=== PATIENT | male | born 1960 | race Caucasian/White ===

== ENCOUNTER → 2018-06-24 | Outpatient (CLI) | payer OTHER ==
[~2018-06-24] MED LIST: ASPI-1471 PO; CEP500 PO; CET10 PO; FEXO-67 PO; LOR5 PO; MONT10TA PO; RANI-366 PO
--- NOTE | 2018-06-24 14:25 | EKG ---
FACILITY: [facility] PATIENT NAME: QUINTON PEREYRA : [id number] MR: [id number] V: [id number] EXAM DATE: ORDERING PHYSICIAN: JD VELAZQUEZ TECHNOLOGIST: LOUISE Sarah Reason : PREOP Blood Pressure : / mmHG Vent. Rate : 056 BPM Atrial Rate : 056 BPM P-R Int : 194 ms QRS Dur : 104 ms QT Int : 394 ms P-R-T Axes : 074 075 056 degrees QTc Int : 380 ms Sinus bradycardia Otherwise normal ECG No previous ECGs available Confirmed by JD MATHEW ([id number]) on 06/24/2018 6:08:53 PM Referred By: MARCUS Confirmed By:JD MATHEW
[2018-06-24 14:30] LABS: PLATELET COUNT, AUTOMATED 274 K/uL (150-450)
== END ==
LOC: LAB 13:58
PROVIDERS: ATTEND Anesthesiology
DX: Z01.812 Encounter for preprocedural laboratory examination (principal); Z01.810 Encounter for preprocedural cardiovascular examination; R00.1 Bradycardia, unspecified; M48.061 Spinal stenosis, lumbar region without neurogenic claudication
CPT/HCPCS: 36415; 82040; 82247; 82310; 82374; 82435; 82565; 82947; 84075; 84132; 84155; 84295; 84450; 84460; 84520; 85025; 93005

== ENCOUNTER 2018-07-12 00:48 | Day surgery (SDC) | payer OTHER ==
[~2018-07-12] VITALS: Ht 182.9 cm; Wt 70.3 kg
[~2018-07-12 00:48] MED LIST changes: +ACET-1966 PO; +NAPR220C12 PO; +PREG20SO PO; +PREG75CA60 PO
[2018-07-12] MEDS ORDERED: DEXAMETHASONE SOD PHOS 10MG/ML ONE (06:20)
[2018-07-12] MEDS ORDERED: KETAMINE HCL-NS 50 MG/5 ML SYR ONE (06:23)
[2018-07-12] MEDS ORDERED: PROPOFOL(*)1000 MG/100 ML VIAL 100 ML ONE (06:27)
[2018-07-12] MEDS ORDERED: PROPOFOL EMUL(*) 10MG/ML 20 ML 20 ML ONE ×2 (07:44→11:29)
[2018-07-12] MEDS ORDERED: LIDOCAINE MPF 1% 5 ML VIAL ONE (07:44)
[2018-07-12] MEDS ORDERED: METOCLOPRAMIDE 10 MG/2 ML SDV ONE (07:47)
[2018-07-12] MEDS ORDERED: fentaNYL CITR 250 MCG/5 ML AMP ONE (07:48)
[2018-07-12 07:50] VITALS: BP 154/101
[2018-07-12] MEDS ORDERED: MIDAZOLAM 2 MG/2 ML VIAL IVP PRN ×2 (08:00→09:20)
[2018-07-12] MEDS ORDERED: ceFAZolin(*) 2GM/D5W 50ML 50 ML IVPB ONE (08:00)
[2018-07-12] MEDS ORDERED: ACETAMINOPHEN 500 MG TAB PO ONE (08:20)
[2018-07-12] MEDS ORDERED: LIDOCAINE/SOD BICARB 8.4% SYR ID ONE (08:20)
[2018-07-12] MEDS ORDERED: PREGABALIN 150 MG CAPSULE PO ONE (08:20)
[2018-07-12] MEDS ORDERED: FAMOTIDINE 20 MG TAB PO ONE (08:20)
[2018-07-12] MEDS ORDERED: NORMOSOL R SOLN(*) 1000 ML BAG 1,000 ML IV PRN (08:20)
[2018-07-12] MEDS ORDERED: ROCURONIUM BROM 10 MG/ML 5 ML ONE (10:15)
[2018-07-12] MEDS ORDERED: ONDANSETRON 4 MG/2 ML VIAL ONE (10:32)
[2018-07-12] MEDS ORDERED: NS 0.9% IRRIGATION 1000ML PLCT IR ONE (10:47)
[2018-07-12] MEDS ORDERED: ROPIVACAINE 0.2% 20 ML VIAL ONE (12:25)
[2018-07-12] MEDS ORDERED: fentaNYL CITR 100 MCG/2 ML AMP ONE (13:00)
[2018-07-12] MEDS ORDERED: HYDROmorphone HCL 2 MG/ML SDV ONE (13:13)
[2018-07-12] MEDS ORDERED: DIAZEPAM 5 MG TAB ONE (13:34)
[2018-07-12] MEDS ORDERED: ACETAMINOPHEN(*)1000 MG/100 ML 100 ML IVPB ONE (13:37)
[2018-07-12] MEDS ORDERED: HYDR-385 PO (13:42)
[2018-07-12] MEDS ORDERED: DIA5 PO (13:44)
[2018-07-12] MEDS ORDERED: DOCU240C84 PO (13:45)
--- NOTE | 2018-07-12 14:21 | RADIOLOGY IMAGING REPORT ---
FACILITY: [facility] PATIENT NAME: Francisco Jewell : 1960 MR: [id number] V: [id number] EXAM DATE: ORDERING PHYSICIAN: JOAHN JARRETT TECHNOLOGIST: Location: [facility] [place] Patient: Francisco Jewell : 1960 Visit/Account:[id number] Date of Sevice: 07/12/2018 Technique: C-ARM FLUORO 1 HR HISTORY: L3-L4 DISC HERNIATION/FUSION Comparison studies: MRI lumbar spine May 24, 2018 FINDINGS: 6 operative fluoroscopic images were obtained of the lower lumbar spine. Spinal fusion bishop dwradha with an interbody spacer is noted at L3-L4. Fluoroscopy time: 156.2 seconds IMPRESSION: 1. Intraoperative fluoroscopic radiographs as described above. Please see operative report for furt her details. Report Dictated By: Chico Montgomery DO at 07/12/2018 2:15 PM Report E-Signed By: Chico Montgomery DO at 07/12/2018 2:16 PM WSN:[email or web address]
[2018-07-12 14:25] VITALS: BP 145/94
[2018-07-12] MEDS ORDERED: APAP/HYDROCODONE 325/5 TAB PO ONE (14:30)
[2018-07-12 14:57] VITALS: BP 151/102
[2018-07-12 14:59] VITALS: BP 134/104
--- NOTE | 2018-07-13 01:27 | OPERATIVE REPORT 1 ---
EVENT DATE: July 12, 2018 SURGEON: Moo Conley MD ANESTHESIOLOGIST: Seven Tillman MD ANESTHESIA: General endotracheal anesthesia. BAR TENDER: ALY Olivas PREOPERATIVE DIAGNOSIS Left L3 and L4 radiculopathy with L3-L4 spondylolisthesis and foraminal stenosis. POSTOPERATIVE DIAGNOSIS Left L3 and L4 radiculopathy with L3-L4 spondylolisthesis and foraminal stenosis. PROCEDURE PERFORMED L3-L4 minimally invasive transforaminal lumbar interbody fusion. INTRAVENOUS FLUIDS 1700 mL. ESTIMATED BLOOD LOSS 40 mL. IMPLANTS USED An 11 mm titanium interbody oblique cage from [employer], 6.5 mm x 45 mm Relign pedicle screws from [employer], 5.5 mm x 40 mm connecting rods from [employer] x2, and locking caps from [employer] x4. DRAINS None. SPECIMENS None. COMPLICATIONS None. DISPOSITION Postanesthesia care unit. INDICATIONS FOR SURGERY Dr. Jewell is a 57-year-old male who presented to my clinic with a complaint of radiating left buttock and anterior thigh pain as well as some pain going into the groin. These symptoms were made worse with standing or sitting upright and improved with forward flexion of the lumbar spine. They were present on the left but not so much on the right. His physical examination was significant for normal range of motion, negative straight leg raising test, normal strength, and normal sensation. His imaging studies showed a grade 1, almost grade 2 anterolisthesis of L3 on L4, and the MRI showed severe foraminal stenosis, particularly on the left, secondary to disc height loss, facet hypertrophy, and the anterolisthesis of L3 on L4. Secondary to ongoing symptoms and failure to improve with injections, physical therapy, and activity modifications, Dr. Jewell was offered and elected to undergo L3-L4 transforaminal lumbar interbody fusion. Prior to surgery, I explained in detail to the patient the possible risks of surgery. These risks include bleeding, infection, damage to surrounding structures, nerve root injury, spinal fluid leak, meningitis, persistent and/or worsening pain, need for further surgery, , blindness, sexual dysfunction, autonomic nervous system dysfunction, as well as other unforeseen medical and surgical complications. An understanding that in general, spinal surgery is more predictive at improving extremity discomfort than axial spine pain was stressed. DESCRIPTION OF PROCEDURE On the day of surgery, the patient was met in the preoperative holding area and all questions were answered. The operative site was identified and marked by myself. The patient was brought in good condition to the operating room, and after succumbing to anesthesia, he was positioned in the prone position on a Jm table. All bony protuberances and soft tissues were well padded in the standard fashion. Care was taken to maintain appropriate perfusion pressures during anesthesia. Preoperative antibiotics were administered according to the appropriate timing schedule. At the conclusion of the procedure, the sponge and needle counts were correct x2. Fluoroscopy was brought into the field and used to ramona the appropriate starting points for percutaneous pedicle screws. The patient was then prepped and draped in the standard sterile orthopedic fashion. A final time-out was undertaken to confirm correct patient, correct levels, and correct surgery. Bilateral Jen- type approaches were made, coming down into the interval between longissimus and multifidus muscles and allowing us to use blunt finger dissection to come down to the starting points for pedicle screws at L3 and L4. Jamshidi needles were placed at the three o'clock position on the right side and the nine o'clock position on the left side and then advanced under fluoroscopic guidance through the isthmus of the pedicles bilaterally. Guidewires were then placed through the Jamshidis, and the needles were withdrawn. Lateral imaging studies showed the guidewires to be appropriately placed. The tap was then used to tap all four pedicles, and the tap was tested with neurophysiologic monitoring and tested greater than 20 milliamps at every pedicle. We then selected 6.5 mm x 45 mm screws, and on the right side we placed those screws with minimally invasive towers. On the left, we placed the screw shanks with attached 60 mm retractor blades. The screws were all tested with neurophysiologic monitoring, and again, all tested above 20 milliamps. The minimally invasive retractors were then attached to the retractor blades, and these were distracted. A medial blade was added to sweep away the paraspinal musculature. This allowed me to expose the L3-L4 facet, which was quite overgrown. Hemostasis was obtained, and an osteotome was used to remove the inferior articular process of L3 and expose the joint. The superior articular process of L4 was similarly removed with the use of an osteotome, and then a #4 Kerrison rongeur was used to skeletonize the superior and medial aspect of the L4 pedicle. I was thus able to identify the exiting L3 nerve root as well as the transiting L4 root and work within the interval between the two. The disc space was identified and an annulotomy was performed. Progressively larger paddles were used to scrape off the endplates and remove all remaining disc material. I was able to further distract the disc space once the facet joint was removed as well. A combination of varying sizes of curettes and pituitary rongeurs were used to clean the endplates of the inferior L3 and superior L4 vertebrae of all cartilaginous remnants. I then selected a bulleted 11 mm oblique interbody device and packed it with demineralized bone matrix. Under fluoroscopic guidance, the interbody device was then tapped into the interspace and had excellent purchase and good position on AP and lateral radiographs. The wounds were then irrigated with copious sterile saline solution, and on the left side the retractor blades were removed and minimally invasive towers were placed on the shower shanks. The caliper was used to measure for appropriate shiv length, and we chose 40 mm rods for both sides. These were placed in standard minimally invasive fashion, and then locking caps were placed, first into the L4 screws, and then reduction maneuver was used to pull the L3 vertebral body posteriorly and place the locking caps there as well. Compression was applied across both pedicle screw constructs, and final tightening was performed with the torque-limiting device. The towers were then removed, and final AP and lateral radiographs were obtained that showed excellent positioning of the instrumentation. The wound was then irrigated with sterile saline solution and closed in layers using interrupted sutures for the fascia, inverted interrupted sutures for the subcutaneous tissue, and then a running subcuticular skin stitch. Sponge and needle counts were correct x2. POSTOPERATIVE CARE PLAN Dr. Jewell will remain in the hospital until he meets discharge criteria. He will follow up with me in two weeks' time for wound check and examination. GLENN
== END 2018-07-12 14:29 | disposition home or self-care (01) ==
LOC: OR 00:48
PROVIDERS: ATTEND Orthopaedic Surgery
DX: M48.061 Spinal stenosis, lumbar region without neurogenic claudication (principal); M54.16 Radiculopathy, lumbar region; M43.16 Spondylolisthesis, lumbar region
CPT/HCPCS: 22612; 36415; 76000; 86850; 86900; 86901; 97161; C1713; J0131; J1100; J1170; J2001; J2250; J2405; J2704; J2765; J2795; J3010; J3490; J0690